=== PATIENT | female | born 1970 | race African-American/Black ===

== ENCOUNTER 2021-01-09 14:28 | Emergency (ER) | payer MEDICAID, OTHER ==
[~2021-01-09] VITALS: Ht 175.3 cm; Wt 96.0 kg
[2021-01-09 14:30] VITALS: BP 128/82
[2021-01-09 15:38] LABS: BASOPHILS % 1.9 % (0.0-2.0); EOSINOPHILS % 3.2 % (0.0-5.0); HEMATOCRIT. 27.9 % (36.0-48.0); LYMPHOCYTES % 17.1 % (20.0-50.0); MEAN CORPUSCULAR HEMOGLOBIN 18.1 pg (28.0-32.0); MEAN PLATELET VOLUME 9.3 fl (7.4-10.4); MONOCYTES % 6.3 % (2.0-8.0); NEUTROPHILS % 71.5 % (40.0-76.0); PLATELET 228 x1000/uL (130-400); RED BLOOD CELL COUNT 4.43 mill/uL (4.2-5.4); RED CELL DISTRIBUTION WIDTH 29.5 % (11.6-14.6)
[2021-01-09 15:44] LABS: CHLORIDE 107 mEq/L (98-107)
[2021-01-09 16:32] LABS: PLATELET ESTIMATE NORMAL
[2021-01-09 16:40] LABS: CLARITY URINE CLEAR (CLEAR); COLOR URINE YELLOW (YELLOW); KETONES URINE TRACE (NEGATIVE); LEUKOCYTE ESTERASE URINE 1+ (NEGATIVE); NITRITE URINE NEGATIVE (NEGATIVE); OCCULT BLOOD URINE 3+ (NEGATIVE); PH URINE 5.5 (4.5-8.0); PROTEIN URINE 1+ (NEGATIVE); SPECIFIC GRAVITY URINE 1.028 (1.005-1.030)
== END 2021-01-09 16:58 | disposition home or self-care (01) ==
LOC: ER 14:28
DX: D50.0 Iron deficiency anemia secondary to blood loss (chronic) (principal); Z98.890 Other specified postprocedural states
CPT/HCPCS: 36415; 80053; 81003; 85025; 93005; 99284

== ENCOUNTER 2022-06-22 15:01 | Emergency (ER) | payer MEDICAID, OTHER ==
[~2022-06-22] VITALS: Ht 172.7 cm; Wt 105.0 kg
[~2022-06-22 15:01] MED LIST: FERR325T6 MT; IBUP-2029 MT
[2022-06-22] MEDS ORDERED: IBUPROFEN 400MG TABLET PO ONE (16:45)
[2022-06-22] MEDS ORDERED: IBUP-2028 MT (16:54)
[2022-06-22 17:30] VITALS: BP 132/87
== END 2022-06-22 18:24 | disposition home or self-care (01) ==
LOC: ER 15:05
DX: M25.511 Pain in right shoulder (principal); M54.9 Dorsalgia, unspecified; V99.XXXA Unspecified transport accident, initial encounter; Y93.89 Activity, other specified; Y92.89 Other specified places as the place of occurrence of the external cause; Y99.8 Other external cause status
CPT/HCPCS: 72100; 73000; 73030; 99284

== ENCOUNTER 2025-06-07 16:51 | Emergency (ER) | payer OTHER ==
[~2025-06-07] VITALS: Ht 175.3 cm; Wt 77.0 kg
[~2025-06-07 16:51] MED LIST changes: +IBUP-2028 MT; +NITR100C MT
[2025-06-07 17:10] VITALS: O2SAT 97
[2025-06-07 17:30] LABS: BASOPHILS % 1.1 % (0.0-2.0); EOSINOPHILS % 3.6 % (0.0-5.0); HEMATOCRIT. 28.2 % (36.0-48.0); HEMOGLOBIN. 8.1 g/dL (12.0-16.0); LYMPHOCYTES % 19.3 % (20.0-50.0); MEAN PLATELET VOLUME 9.4 fl (7.4-10.4); MONOCYTES % 8.9 % (2.0-8.0); NEUTROPHILS % 67.1 % (40.0-76.0); PLATELET 266 x1000/uL (130-400); RED BLOOD CELL COUNT 4.58 mill/uL (4.2-5.4); RED CELL DISTRIBUTION WIDTH 20.2 % (11.6-14.6)
[2025-06-07 17:31] LABS: ADD RBC MORPHOLOGY YES
[2025-06-07 17:51] LABS: CREATININE 0.8 mg/dL (0.6-1.0); UREA NITROGEN BLOOD 8 mg/dL (9-23)
[2025-06-07 17:52] LABS: TROPONIN I HIGH SENSITIVITY 11 ng/L (3.0-34)
[2025-06-07 18:03] LABS: PLATELET ESTIMATE NORMAL
[2025-06-07 18:46] VITALS: BP 159/90; PULSE 98; RESP 20; TEMP 37.1; O2SAT 97
[2025-06-07] MEDS: FUROSEMIDE 40MG/4ML VIAL IVP ONE (18:53)
[2025-06-07] MEDS: POTASSIUM CHLORIDE 20MEQ TABLET SR PO ONE (18:53)
== END 2025-06-07 20:00 | disposition short-term general hospital (02) ==
LOC: ER 16:51 → CMPBEDREQ 06-08 08:03
DX: R06.02 Shortness of breath (principal); E03.9 Hypothyroidism, unspecified; D64.9 Anemia, unspecified; F12.90 Cannabis use, unspecified, uncomplicated; I10 Essential (primary) hypertension; Z98.890 Other specified postprocedural states; Z79.899 Other long term (current) drug therapy
CPT/HCPCS: 80048; 81025; 83880; 85025; 84484; 36415; 71045; 93005; 96374; 99285; J1938; Z7610 ×2